=== PATIENT | male | born 1995 | race Caucasian/White ===

== ENCOUNTER 2021-04-02 14:17 | Emergency (ER) ==
[2021-04-02] MEDS ORDERED: Acetaminophen 500 MG TAB ONE (14:57)
[2021-04-02] MEDS ORDERED: Ketorolac Tromethamine 30 MG/ML VIAL ONE (14:57)
[2021-04-02 15:19] LABS: #Lymphocytes 0.4 thou/uL (1.20-3.40); #Monocytes 0.2 thou/uL (0.11-0.59); %Eosinophils 0.2 % (0.0-10.0); %Lymphocytes 10.7 % (21.0-51.0); %Monocytes 4.2 % (0.0-10.0); %Neutrophils 84.9 % (42.0-75.0); Hemoglobin 8.3 g/dL (14.0-18.0); Mean Corpuscular HGB CONC 32.7 g/dL (32.0-36.0); Mean Corpuscular Hemoglobin 27.6 pg (27.0-31.0); Mean Corpuscular Volume 84.3 fL (78.0-98.0); Mean Platelet Volume 9.9 fL (7.4-10.4); Platelet Count 150 thou/uL (130-400); RBC Distribution Width 14.8 % (11.5-14.5); Red Blood Cell (RBC) Count 3.03 mill/uL (4.70-6.10); White Blood Cell (WBC) Count 3.5 thou/uL (4.8-10.8)
[2021-04-02 15:44] LABS: ALT (SGPT) 21 U/L (8-55); AST (SGOT) 20 U/L (5-34); Albumin 3.6 g/dL (3.5-5.0); Alkaline Phosphatase 61 U/L (40-110); Anion Gap 11 mmol/L (10-20); BUN (Urea Nitrogen) 18 mg/dL (8.9-20.6); Bilirubin, Total 0.6 mg/dL (0.2-1.2); Calc. Creatinine Clearance 0 mL/min (70-130); Calcium 8.7 mg/dL (7.8-10.44); Carbon Dioxide 25 mmol/L (22-29); Chloride 104 mmol/L (98-107); Globulin 2.9 g/dL (2.4-3.5); Glucose 98 mg/dL (70-105); Potassium 3.8 mmol/L (3.5-5.1); Protein, Total 6.5 g/dL (6.0-8.3); Sodium 136 mmol/L (136-145)
[2021-04-02 19:24] LABS: Hemoglobin 7.3 g/dL (14.0-18.0)
== END 2021-04-02 19:55 | disposition home or self-care (01) ==
LOC: ERS 14:17
DX: U07.1 COVID-19 (principal); J12.82 Pneumonia due to coronavirus disease 2019; D64.9 Anemia, unspecified; R00.0 Tachycardia, unspecified; F17.210 Nicotine dependence, cigarettes, uncomplicated; F41.9 Anxiety disorder, unspecified; Z79.899 Other long term (current) drug therapy
CPT/HCPCS: 36415; 71045; 71275; 80053; 82274; 83605; 85025; 96374; J1885

== ENCOUNTER 2022-06-04 10:09 | Day surgery (SDC) | payer BC ==
[2022-06-03 16:31] VITALS: BMI 34.0
[2022-06-04] MEDS ORDERED: Oxymetazoline HCl 0.05% (30 ML BOT) ONE ×2 (10:49→11:28)
[2022-06-04] MEDS ORDERED: Bacitracin Zinc Ointment 30 gm TUBE ONE (11:28)
[2022-06-04] MEDS ORDERED: EPINEPHrine 1 MG/ML AMP ONE (11:28)
[2022-06-04] MEDS ORDERED: Lidocaine 1% (PF) 30 ML VIAL ONE (11:28)
[2022-06-04] MEDS ORDERED: fentaNYL PF 100 MCG/2 ML SYRINGE ONE (11:35)
[2022-06-04] MEDS ORDERED: Ondansetron PF 4 MG/2 ML Vial ONE (11:50)
[2022-06-04] MEDS ORDERED: Glycopyrrolate 0.2 MG/ML 5 ML SYRINGE ONE (11:50)
[2022-06-04] MEDS ORDERED: Dexamethasone 20 MG/5 ML VIAL ONE ×2 (11:50)
[2022-06-04] MEDS ORDERED: PROPOFOL 200 MG/20 ML VIAL ONE (11:50)
[2022-06-04] MEDS ORDERED: NEOSTIGMINE 3 MG/3 ML SYR 3 MG/3 ML SYRINGE ONE (11:50)
[2022-06-04] MEDS ORDERED: Rocuronium Bromide 10 MG/ML (10ML VIAL) ONE (11:50)
[2022-06-04] MEDS ORDERED: Ferric Subsulfate (ASTRINGYN) 8 GM VIAL ONE (11:59)
[2022-06-04] MEDS ORDERED: methylPREDNISolone Acetate 40 mg/ml Vial ONE (12:04)
[2022-06-04] MEDS ORDERED: FENTANYL 50 MCG/ML 1 ML VIAL ONE ×2 (12:46→13:04)
== END 2022-06-04 14:10 | disposition home or self-care (01) ==
LOC: SDC 10:09
PROVIDERS: ATTEND Otolaryngology Plastic Surgery within the Head & Neck
PROC: 09TV8ZZ Resection of Left Ethmoid Sinus, Via Natural or Artificial Opening Endoscopic (ICD-10-PCS; principal; 2022-06-04)
PROC: 099R8ZZ Drainage of Left Maxillary Sinus, Via Natural or Artificial Opening Endoscopic (ICD-10-PCS; principal; 2022-06-04)
PROC: 09TU8ZZ Resection of Right Ethmoid Sinus, Via Natural or Artificial Opening Endoscopic (ICD-10-PCS; principal; 2022-06-04)
PROC: 09SM0ZZ Reposition Nasal Septum, Open Approach (ICD-10-PCS; principal; 2022-06-04)
PROC: 099Q8ZZ Drainage of Right Maxillary Sinus, Via Natural or Artificial Opening Endoscopic (ICD-10-PCS; principal; 2022-06-04)
PROC: 0CBNXZZ Excision of Uvula, External Approach (ICD-10-PCS; principal; 2022-06-04)
PROC: 0CTPXZZ Resection of Tonsils, External Approach (ICD-10-PCS; principal; 2022-06-04)
PROC: 095L0ZZ Destruction of Nasal Turbinate, Open Approach (ICD-10-PCS; principal; 2022-06-04)
DX: J01.91 Acute recurrent sinusitis, unspecified (principal); J32.8 Other chronic sinusitis; J34.3 Hypertrophy of nasal turbinates; J34.2 Deviated nasal septum; J35.1 Hypertrophy of tonsils; K13.79 Other lesions of oral mucosa; G47.33 Obstructive sleep apnea (adult) (pediatric); J30.9 Allergic rhinitis, unspecified; Z87.891 Personal history of nicotine dependence; Z79.899 Other long term (current) drug therapy
CPT/HCPCS: 88304; J0171; J1030; J1100; J2001; J2405; J2704; J3010